=== PATIENT | male | born 1945 | race Caucasian/White ===

== ENCOUNTER 2018-12-02 18:16 | Observation (INO) | payer OTHER ==
[~2018-12-02] VITALS: Ht 177.8 cm; Wt 127.0 kg
[~2018-12-02 18:16] MED LIST: DILT240 PO; FLUT44OIA IH; INSR10I SC; INSULANI SC; LOPE2C PO; LORA1 PO; LOSA50 PO; LOSHYD PO; METF500 PO; OMEP20ER PO; SIMV80 PO; SODFLU1.1 PO; WARF10 PO; WARF7.5 PO
[2018-12-02] MEDS ORDERED: ALBU90OI INH (19:09)
[2018-12-02] MEDS ORDERED: ATOR20 PO (19:10)
[2018-12-02] MEDS ORDERED: CHOL10002 PO (19:11)
[2018-12-02] MEDS ORDERED: Artificials Tea30 ML BOTHEYES (19:11)
[2018-12-02] MEDS ORDERED: TRULICITY0.75 MG/0. SC (19:14)
[2018-12-02] MEDS ORDERED: FISH OIL 1,0001 EAC1 PO (19:14)
[2018-12-02] MEDS ORDERED: FLUTICASONE PROP INH (19:15)
[2018-12-02] MEDS ORDERED: INSU100I6 SC ×3 (19:16→19:17)
[2018-12-02] MEDS ORDERED: INSULANPEN SC (19:17)
[2018-12-02] MEDS ORDERED: Loratadine10 MG PO (19:18)
[2018-12-02] MEDS ORDERED: LORA.5 PO (19:18)
[2018-12-02] MEDS ORDERED: LOSA25 PO (19:19)
[2018-12-02] MEDS ORDERED: METO50ER PO ×2 (19:19)
[2018-12-02] MEDS ORDERED: Hair, Skin & N1 EACH PO (19:20)
[2018-12-02] MEDS ORDERED: Omeprazole20 M1 PO (19:21)
[2018-12-02] MEDS ORDERED: WARF5 PO ×2 (19:21→19:22)
[2018-12-02 19:50] LABS: BASOPHILS ABSOLUTE AUTO 0.04 K/mm3 (0.00-0.23); BASOPHILS PERCENT AUTO 0 % (0-2); Hematocrit 37.3 % (37.0-53.0); Hemoglobin 12.1 g/dL (13.5-17.5); Mean Corpuscular HGB Conc 32.4 g/dL (31.5-36.5); Mean Corpuscular Volume 89 fL (80-100); NEUTROPHILS PERCENT AUTO 73 % (41-73); Red Blood Cell Count 4.17 M/mm3 (4.30-5.90)
[2018-12-02 19:52] LABS: EOSINOPHILS ABSOLUTE AUTO 0.06 K/mm3 (0.00-0.68); EOSINOPHILS PERCENT AUTO 1 % (0-6); IMMATURE GRAN ABSOLUTE AUTO 0.04 K/mm3 (0.00-0.10); IMMATURE GRAN PERCENT AUTO 0 % (0-1); LYMPHOCYTES ABSOLUTE AUTO 1.86 K/mm3 (0.84-5.20); LYMPHOCYTES PERCENT AUTO 18 % (21-46); MONOCYTES ABSOLUTE AUTO 0.79 K/mm3 (0.16-1.47); MONOCYTES PERCENT AUTO 8 % (4-13); Mean Platelet Volume 9.2 fL (9.1-12.4); NEUTROPHILS ABSOLUTE AUTO 7.56 K/mm3 (1.96-9.15); Platelet Count 223 K/mm3 (150-400); RDW Standard Deviation 45.7 fL (35.1-46.3); White Blood Cell Count 10.35 K/mm3 (4.00-11.30)
[2018-12-02 20:07] LABS: International Normalized Ratio 3.01; Prothrombin Time Results 28.9 Sec (9.7-11.5)
[2018-12-02 20:12] LABS: Alanine Aminotransfer (ALT/SGP 28 U/L (12-78); Albumin, Blood 3.7 g/dL (3.4-5.0); Albumin/Globulin Ratio 0.9 (0.8-1.8); Alk Phos 76 U/L (50-136); Anion Gap 10 mmol/L (6-16); Aspartate Aminotrans (AST/SGOT 14 U/L (12-37); Bilirubin, Total 0.6 mg/dL (0.1-1.0); Blood Urea Nitrogen 16 mg/dL (8-24); Bun/Creatinine Ratio 13.2 (12.0-20.0); CO2, Blood 24 mmol/L (21-32); Calcium, Blood 8.6 mg/dL (8.5-10.1); Chloride, Blood 101 mmol/L (98-108); Creatinine, Blood 1.21 mg/dL (0.60-1.20); Glomerular Filtration Rate >60 (60-); Glucose, Blood 191 mg/dL (70-99); Potassium, Blood 4.5 mmol/L (3.5-5.5); Sodium, Blood 135 mmol/L (136-145); Total Protein, Blood 7.7 g/dL (6.4-8.2)
[2018-12-02 23:44] LABS: Hematocrit 36.1 % (37.0-53.0); Hemoglobin 11.7 g/dL (13.5-17.5)
--- NOTE | 2018-12-03 04:51 | NUR ---
SHIFT SUMMARY PT HAD SOME ABD PAIN UPON ARRIVAL TO FLOOR PT WAS TX WITH TYLENOL AND RESPONDED WELL. PT EVENTUALLY WAS ABLE TO GO TO SLEEP WITH BIPAP ON. PT HAD NO ACUTE ISSUES NOTED. PT IS CURRENTLY SLEEPING AND BREATHING EASY. CALL LIGHT IN REACH.
[2018-12-03 06:14] LABS: Alanine Aminotransfer (ALT/SGP 23 U/L (12-78); Albumin, Blood 3.5 g/dL (3.4-5.0); Albumin/Globulin Ratio 0.9 (0.8-1.8); Alk Phos 75 U/L (50-136); Anion Gap 9 mmol/L (6-16); Aspartate Aminotrans (AST/SGOT 16 U/L (12-37); Bilirubin, Total 1.1 mg/dL (0.1-1.0); Blood Urea Nitrogen 17 mg/dL (8-24); Bun/Creatinine Ratio 15.5 (12.0-20.0); CO2, Blood 23 mmol/L (21-32); Calcium, Blood 9.1 mg/dL (8.5-10.1); Chloride, Blood 104 mmol/L (98-108); Globulin, Blood 3.8 g/dL (2.2-4.0); Glomerular Filtration Rate >60 (60-); Glucose, Blood 184 mg/dL (70-99); Potassium, Blood 4.1 mmol/L (3.5-5.5); Sodium, Blood 136 mmol/L (136-145); Total Protein, Blood 7.3 g/dL (6.4-8.2)
[2018-12-03 10:31] LABS: International Normalized Ratio 1.9
--- NOTE | 2018-12-03 17:14 | NUR ---
PATIENT'S PAIN HAS BEEN TOLERABLE THIS SHIFT THOUGH HE STATES IT IS STILL UNCOMFORTABLE WHEN SITTING STRAIGHT UP. INSULIN GIVEN PER HOME DOSING. MONITORING ANTICOAGULATION. PATIENT INSTRUCTED IF HE IS STILL ADMITTED TO THE HOSPITAL ON WEDNESDAY THAT HE WILL NEED TO BRING IN HIS HOME DOSE OF TRULICITY. CONTINUING TO MONITOR BLOOD PRESSURE.
--- NOTE | 2018-12-04 04:26 | NUR ---
SHIFT SUMMARY PT HAS SLEPT THROUGHOUT THE SHIFT. PT HAD NO ACUTE ISSUES NOTED DURING SHIFT. PT CURRENTLY SLEEPING WITH BIPAP IN PLACE AND BREATHING EASY. CALL LIGHT IN REACH.
[2018-12-04 05:28] LABS: Hematocrit 36.7 % (37.0-53.0); Hemoglobin 11.7 g/dL (13.5-17.5); Mean Corpuscular HGB 28.6 pg (26.0-34.0); Mean Corpuscular HGB Conc 31.9 g/dL (31.5-36.5); Mean Corpuscular Volume 90 fL (80-100); Mean Platelet Volume 9.1 fL (9.1-12.4); Platelet Count 235 K/mm3 (150-400); RDW Standard Deviation 45.6 fL (35.1-46.3); Red Blood Cell Count 4.09 M/mm3 (4.30-5.90); White Blood Cell Count 9.92 K/mm3 (4.00-11.30)
[2018-12-04 05:39] LABS: International Normalized Ratio 1.29; Prothrombin Time Results 13.4 Sec (9.7-11.5)
--- NOTE | 2018-12-04 12:22 | NUR ---
PATIENT DISCHARGED TO HOME WITH AND NIECE. HE STATES AN UNDERSTANDING OF MEDICATION CHANGES. HE STATES HE HAS AN APPOINTMENT TOMORROW TO FOLLOW UP WITH HIS PRIMARY CARE PROVIDER. IV ACCESS REMOVED. NO NEW MEDICATIONS. ESCORTED OUT VIA WHEELCHAIR WITH SUPERINTENDENT COLLIERY.
== END 2018-12-04 12:16 | disposition home or self-care (01) ==
LOC: ER 18:16 → MEDS 18:17 → ER 20:41 → MEDS 20:41
PROVIDERS: Emergency Medicine; Internal Medicine; ADMIT Internal Medicine
DX: S30.1XXA Contusion of abdominal wall, initial encounter (principal); D68.9 Coagulation defect, unspecified; T45.515A Adverse effect of anticoagulants, initial encounter; I11.0 Hypertensive heart disease with heart failure; I50.9 Heart failure, unspecified; I48.91 Unspecified atrial fibrillation; E11.42 Type 2 diabetes mellitus with diabetic polyneuropathy; E66.01 Morbid (severe) obesity due to excess calories; J44.9 Chronic obstructive pulmonary disease, unspecified; G47.33 Obstructive sleep apnea (adult) (pediatric); D50.9 Iron deficiency anemia, unspecified; Z23 Encounter for immunization; Z79.4 Long term (current) use of insulin; Z79.01 Long term (current) use of anticoagulants; Z99.89 Dependence on other enabling machines and devices; Z79.899 Other long term (current) drug therapy; Z88.8 Allergy status to other drugs, medicaments and biological substances; Z95.4 Presence of other heart-valve replacement; Z68.41 Body mass index [BMI] 40.0-44.9, adult
CPT/HCPCS: 36415; 74176; 80053; 82947; 85014; 85018; 85025; 85027; 85610; 85730; 90686; 94640; 94660; 94762; 99285; G0378; J1815

== ENCOUNTER 2019-12-12 22:02 | Emergency (ER) | payer OTHER ==
[~2019-12-12] VITALS: Ht 177.8 cm; Wt 127.0 kg
[~2019-12-12 22:02] MED LIST changes: +ALBU90OI INH; +ATOR20 PO; +Artificials Tea30 ML BOTHEYES; +CHOL10002 PO; +FISH OIL 1,0001 EAC1 PO; +FLUTICASONE PROP INH; +Hair, Skin & N1 EACH PO; +INSU100I6 SC; +INSULANPEN SC; +LORA.5 PO; +LOSA25 PO; +Loratadine10 MG PO; +METO50ER PO; +Omeprazole20 M1 PO; +TRULICITY0.75 MG/0. SC; +WARF5 PO
== END 2019-12-13 03:52 | disposition home or self-care (01) ==
LOC: ER 22:02
DX: K06.8 Other specified disorders of gingiva and edentulous alveolar ridge (principal); E11.9 Type 2 diabetes mellitus without complications; I48.91 Unspecified atrial fibrillation; G47.30 Sleep apnea, unspecified; Z95.2 Presence of prosthetic heart valve; Z88.8 Allergy status to other drugs, medicaments and biological substances; Z79.899 Other long term (current) drug therapy; Z79.4 Long term (current) use of insulin; Z79.01 Long term (current) use of anticoagulants

== ENCOUNTER 2020-03-06 09:11 | Emergency (ER) | payer OTHER ==
[~2020-03-06] VITALS: Ht 177.8 cm; Wt 129.3 kg
[2020-03-06 10:52] LABS: BASOPHILS ABSOLUTE AUTO 0.05 K/mm3 (0.00-0.23); BASOPHILS PERCENT AUTO 1 % (0-2); EOSINOPHILS PERCENT AUTO 1 % (0-6); Hematocrit 44.9 % (37.0-53.0); Hemoglobin 14.6 g/dL (13.5-17.5); IMMATURE GRAN ABSOLUTE AUTO 0.04 K/mm3 (0.00-0.10); IMMATURE GRAN PERCENT AUTO 0 % (0-1); LYMPHOCYTES ABSOLUTE AUTO 1.68 K/mm3 (0.84-5.20); LYMPHOCYTES PERCENT AUTO 16 % (21-46); MONOCYTES ABSOLUTE AUTO 0.64 K/mm3 (0.16-1.47); MONOCYTES PERCENT AUTO 6 % (4-13); Mean Corpuscular HGB 28.3 pg (26.0-34.0); Mean Corpuscular HGB Conc 32.5 g/dL (31.5-36.5); Mean Corpuscular Volume 87 fL (80-100); Mean Platelet Volume 9.6 fL (9.1-12.4); NEUTROPHILS PERCENT AUTO 76 % (41-73); Platelet Count 257 K/mm3 (150-400); RDW Coefficient Variation 14.1 % (11.7-14.2); RDW Standard Deviation 44.8 fL (35.1-46.3); Red Blood Cell Count 5.16 M/mm3 (4.30-5.90); White Blood Cell Count 10.41 K/mm3 (4.00-11.30)
[2020-03-06 11:09] LABS: Alanine Aminotransfer (ALT/SGP 34 U/L (12-78); Albumin, Blood 3.6 g/dL (3.4-5.0); Albumin/Globulin Ratio 0.9 (0.8-1.8); Alk Phos 93 U/L (50-136); Anion Gap 9 mmol/L (6-16); Aspartate Aminotrans (AST/SGOT 20 U/L (12-37); Bilirubin, Total 0.7 mg/dL (0.1-1.0); Blood Urea Nitrogen 13 mg/dL (8-24); Bun/Creatinine Ratio 13.3 (12.0-20.0); CO2, Blood 22 mmol/L (21-32); Calcium, Blood 9.2 mg/dL (8.5-10.1); Chloride, Blood 108 mmol/L (98-108); Creatinine, Blood 0.98 mg/dL (0.60-1.20); Globulin, Blood 4.2 g/dL (2.2-4.0); Glomerular Filtration Rate >60 (60-); Glucose, Blood 204 mg/dL (70-99); Sodium, Blood 139 mmol/L (136-145); Total Protein, Blood 7.8 g/dL (6.4-8.2)
[2020-03-06 13:04] LABS: Source, Urine Clean Catch
[2020-03-06 13:08] LABS: Bilirubin, Urine Neg (Neg); Blood, Urine Neg (Neg); Glucose Qualitative, Urine Neg (Neg); Ketones, Urine Neg (Neg); Leukocyte Esterase, Urine 3+ (Neg); Nitrite, Urine Neg (Neg); Protein, Urine Neg (Neg); Urobilinogen, Urine NORM (Normal)
[2020-03-06 13:38] LABS: Appearance, Urine Clear (Clear); Color, Urine Yellow (P-Yellow)
[2020-03-06 13:46] LABS: Bacteria Few /hpf; Red Blood Cells, Urine Not Seen /hpf (0-2); Squamous Epithelial Cells Rare /hpf (Few)
[2020-03-06] MEDS ORDERED: Bactrim Ds Tab1 EACH PO (13:46)
== END 2020-03-06 13:54 | disposition home or self-care (01) ==
LOC: ER 09:11
PROVIDERS: Nurse Practitioner
DX: N39.0 Urinary tract infection, site not specified (principal); K63.89 Other specified diseases of intestine; E11.42 Type 2 diabetes mellitus with diabetic polyneuropathy; I48.91 Unspecified atrial fibrillation; I11.0 Hypertensive heart disease with heart failure; I50.9 Heart failure, unspecified; J43.9 Emphysema, unspecified; D64.9 Anemia, unspecified; Z88.8 Allergy status to other drugs, medicaments and biological substances; Z79.899 Other long term (current) drug therapy; Z79.4 Long term (current) use of insulin; Z79.01 Long term (current) use of anticoagulants
CPT/HCPCS: 74177; 80053; 81001; 83690; 85025; 87086; 96361-59; 96374-59; 99284-25; J2405; J7030; Q9967

== ENCOUNTER 2021-02-08 11:43 | Emergency (ER) | payer OTHER ==
[~2021-02-08] VITALS: Ht 177.8 cm; Wt 113.4 kg
[~2021-02-08 11:43] MED LIST changes: +Bactrim Ds Tab1 EACH PO
[2021-02-08 12:22] LABS: BASOPHILS ABSOLUTE AUTO 0.03 K/mm3 (0.00-0.23); BASOPHILS PERCENT AUTO 0 % (0-2); EOSINOPHILS ABSOLUTE AUTO 0.11 K/mm3 (0.00-0.68); EOSINOPHILS PERCENT AUTO 1 % (0-6); Hematocrit 46.2 % (37.0-53.0); Hemoglobin 15.5 g/dL (13.5-17.5); IMMATURE GRAN ABSOLUTE AUTO 0.03 K/mm3 (0.00-0.10); IMMATURE GRAN PERCENT AUTO 0 % (0-1); LYMPHOCYTES PERCENT AUTO 22 % (21-46); MONOCYTES ABSOLUTE AUTO 0.63 K/mm3 (0.16-1.47); MONOCYTES PERCENT AUTO 7 % (4-13); Mean Corpuscular HGB 28.3 pg (26.0-34.0); Mean Corpuscular HGB Conc 33.5 g/dL (31.5-36.5); Mean Corpuscular Volume 84 fL (80-100); Mean Platelet Volume 9.5 fL (9.1-12.4); NEUTROPHILS ABSOLUTE AUTO 6.48 K/mm3 (1.96-9.15); NEUTROPHILS PERCENT AUTO 69 % (41-73); Platelet Count 223 K/mm3 (150-400); RDW Coefficient Variation 13.4 % (11.7-14.2); RDW Standard Deviation 41.6 fL (35.1-46.3); Red Blood Cell Count 5.48 M/mm3 (4.30-5.90); White Blood Cell Count 9.38 K/mm3 (4.00-11.30)
[2021-02-08 12:49] LABS: Alanine Aminotransfer (ALT/SGP 50 U/L (12-78); Alk Phos 98 U/L (50-136); Anion Gap 6 mmol/L (6-16); Aspartate Aminotrans (AST/SGOT 27 U/L (12-37); Bilirubin, Total 1.1 mg/dL (0.1-1.0); Blood Urea Nitrogen 10 mg/dL (8-24); Bun/Creatinine Ratio 9.7 (12.0-20.0); CO2, Blood 25 mmol/L (21-32); Calcium, Blood 9.1 mg/dL (8.5-10.1); Chloride, Blood 109 mmol/L (98-108); Creatinine, Blood 1.03 mg/dL (0.60-1.20); Globulin, Blood 4.2 g/dL (2.2-4.0); Glomerular Filtration Rate >60 (60-); Glucose, Blood 207 mg/dL (70-99); Potassium, Blood 4.1 mmol/L (3.5-5.5); Sodium, Blood 140 mmol/L (136-145); Total Protein, Blood 8.2 g/dL (6.4-8.2)
[2021-02-08] MEDS ORDERED: LOPE2C PO (16:58)
== END 2021-02-08 17:21 | disposition home or self-care (01) ==
LOC: ER 11:43
PROVIDERS: Physician Assistant
DX: R19.7 Diarrhea, unspecified (principal); Z79.4 Long term (current) use of insulin; Z79.01 Long term (current) use of anticoagulants; Z79.899 Other long term (current) drug therapy
CPT/HCPCS: 36415; 80053; 81000; 85025; 96360; 96361; 99284-25; A9270; J7030

== ENCOUNTER 2025-08-28 09:38 | Emergency (ER) | payer OTHER ==
[~2025-08-28] VITALS: Ht 177.8 cm; Wt 93.0 kg
[2025-08-28 10:23] LABS: BASOPHILS ABSOLUTE AUTO 0.04 K/mm3 (0.00-0.23); BASOPHILS PERCENT AUTO 1 % (0-2); EOSINOPHILS ABSOLUTE AUTO 0.09 K/mm3 (0.00-0.68); EOSINOPHILS PERCENT AUTO 1 % (0-6); Hematocrit 38.9 % (37.0-53.0); Hemoglobin 12.9 g/dL (13.5-17.5); IMMATURE GRAN ABSOLUTE AUTO 0.01 K/mm3 (0.00-0.10); IMMATURE GRAN PERCENT AUTO 0 % (0-1); LYMPHOCYTES ABSOLUTE AUTO 1.29 K/mm3 (0.84-5.20); LYMPHOCYTES PERCENT AUTO 18 % (21-46); MONOCYTES ABSOLUTE AUTO 0.40 K/mm3 (0.16-1.47); MONOCYTES PERCENT AUTO 6 % (4-13); Mean Corpuscular HGB Conc 33.2 g/dL (31.5-36.5); Mean Corpuscular Volume 88 fL (80-100); NEUTROPHILS ABSOLUTE AUTO 5.44 K/mm3 (1.96-9.15); NEUTROPHILS PERCENT AUTO 75 % (41-73); NRBC ABSOLUTE 0.00 K/mm3 (0.00-0.02); NRBC Auto 0.0 /100 WBC (0.0-0.2); Platelet Count 189 K/mm3 (150-400); RDW Coefficient Variation 13.1 % (11.7-14.2); RDW Standard Deviation 41.9 fL (35.1-46.3)
[2025-08-28 10:43] LABS: Alanine Aminotransfer (ALT/SGP 49.0 U/L (12-78); Albumin, Blood 3.7 g/dL (3.4-5.0); Albumin/Globulin Ratio 1.1 (0.8-1.8); Anion Gap 7.0 mmol/L (3-11); Aspartate Aminotrans (AST/SGOT 25.0 U/L (12-37); Bilirubin, Total 0.6 mg/dL (0.1-1.0); Blood Urea Nitrogen 23.0 mg/dL (8-24); CO2, Blood 27.0 mmol/L (21-32); Calcium, Blood 8.8 mg/dL (8.5-10.1); Chloride, Blood 104.0 mmol/L (98-108); Creatinine, Blood 1.0 mg/dL (0.60-1.20); Globulin, Blood 3.4 g/dL (2.2-4.0); Glucose, Blood 473.0 mg/dL (70-99); Potassium, Blood 4.5 mmol/L (3.5-5.5); Sodium, Blood 133.0 mmol/L (136-145); Total Protein, Blood 7.1 g/dL (6.4-8.2)
[2025-08-28] MEDS ORDERED: TRULICITY4.5 MG/0.5 INJ (10:52)
[2025-08-28] MEDS ORDERED: ASPI81CH PO (10:52)
[2025-08-28] MEDS ORDERED: STIOLTO RESPIMAT4 G1 INH (10:53)
[2025-08-28 12:28] VITALS: BP 100/67
== END 2025-08-28 11:55 | disposition home or self-care (01) ==
LOC: ER 09:38
PROVIDERS: Physician Assistant
DX: J20.9 Acute bronchitis, unspecified (principal); E11.65 Type 2 diabetes mellitus with hyperglycemia; J44.0 Chronic obstructive pulmonary disease with (acute) lower respiratory infection; J43.9 Emphysema, unspecified; E11.42 Type 2 diabetes mellitus with diabetic polyneuropathy; I48.91 Unspecified atrial fibrillation; G47.30 Sleep apnea, unspecified; I25.2 Old myocardial infarction; I11.0 Hypertensive heart disease with heart failure; I50.9 Heart failure, unspecified; Z95.2 Presence of prosthetic heart valve; Z87.891 Personal history of nicotine dependence; Z88.8 Allergy status to other drugs, medicaments and biological substances; Z79.4 Long term (current) use of insulin; Z79.01 Long term (current) use of anticoagulants; Z79.899 Other long term (current) drug therapy
CPT/HCPCS: 71046; 80053; 84484; 85025; 93005; 93010; 99284-25